=== PATIENT | female | born 1990 | race African-American/Black ===

== ENCOUNTER 2020-02-02 19:24 | Emergency (ER) | payer OTHER ==
--- NOTE | 2020-02-02 19:32 | PDOC ---
Rapid Medical Evaluation Time Seen by Provider: 02/02/20 19:28 Medical Evaluation: 02/02/20 19:28 I have performed a brief in-person evaluation of this patient. The patient presents with a chief complaint of:vag dc w/ itching x 1 week, similar to prior yeast infection per pt. No odor, dysuria, abd pain, n/v/f/c. Wants to be tested for STDs as new sexual partner Pertinent physical exam findings: Well leonardo and stable I have ordered the following:ua/upreg/gc/chlam The patient will proceed to the ED for further evaluation.
--- NOTE | 2020-02-02 19:40 | PDOC ---
History of Present Illness - General Chief Complaint: Vaginal Sxs Stated Complaint: YEAST INFECT/ STD Time Seen by Provider: 02/02/20 19:28 History Source: Patient Exam Limitations: No Limitations Past History - Travel History Traveled outside of the country in the last 30 days: No Close contact w/someone who was outside of country & ill: No - Medical History Allergies/Adverse Reactions: Allergies Allergy/AdvReac Type Severity Reaction Status Date / Time acetaminophen [From Tylenol] Allergy Verified 02/02/20 19:30 latex Allergy Verified 02/02/20 19:31 Home Medications: Ambulatory Orders Fluconazole 150 mg PO ASDIR #2 tablet 02/02/20 Asthma: Yes COPD: No - Psycho-Social/Smoking History Smoking History: Current some day smoker Number of Cigarettes Smoked Daily: 2 Information on smoking cessation initiated: Yes - Substance Abuse Hx (Audit-C & DAST Scrn) How often the patient has a drink containing alcohol: 2-4 times / month Number of drinks the patient has on a typical day: 1 or 2 How often the patient has six or more drinks on one occasion: Never Score: In Men: 4 or > Positive; In Women: 3 or > Positive: 2 Screen Result (Pos requires Nsg. Audit-10AR): Negative In the last yr the pt used illegal drug/Rx for NonMed reason: No Score: Yes response is considered Positive: 0 Screen Result (Positive result requires Nsg. DAST-10): Negative Review of Systems - Review of Systems Able to Perform ROS?: Yes Comments:: 02/02/20 21:23 CONSTITUTIONAL: Absent: fever, chills, diaphoresis, generalized weakness, malaise, loss of appetite HEENT: Absent: rhinorrhea, nasal congestion, throat pain, throat swelling, difficulty swallowing, mouth swelling, ear pain, eye pain, visual Changes GASTROINTESTINAL: Absent: abdominal pain, abdominal distension, nausea, vomiting, diarrhea, constipation, melena, hematochezia GENITOURINARY: Present: Vaginal itching, discharge Absent: dysuria, frequency, urgency, hesitancy, hematuria, flank pain, genital pain MUSCULOSKELETAL: Absent: myalgia, arthralgia, joint swelling SKIN: Absent: rash, itching, pallor NEUROLOGIC: Absent: headache, focal weakness or paresthesias, dizziness, unsteady gait, seizure, mental status changes, bladder or bowel incontinence PSYCHIATRIC: Absent: anxiety, depression, suicidal or homicidal ideation, hallucinations. Is the patient limited [place] proficient: No *Physical Exam - Vital Signs Last Vital Signs Temp Pulse Resp BP Pulse Ox 98.8 F 71 20 98/66 100 02/02/20 19:31 02/02/20 19:31 02/02/20 19:31 02/02/20 19:31 02/02/20 19:31 - Physical Exam 02/02/20 21:24 GENERAL: Well developed, well nourished. Awake and alert. No acute distress. ABDOMINAL: Soft. Non-tender. Non-distended. No rebound or guarding. No organomegaly. Normoactive bowel sounds. MUSCULOSKELETAL Normal range of motion at all joints. No bony deformities or tenderness. No CVA tenderness. EXTREMITIES: No cyanosis. No clubbing. No edema. No calf tenderness. SKIN: Warm and dry. Normal capillary refill. No rashes. No jaundice. NEUROLOGICAL: Alert, awake, appropriate. Cranial nerves 2-12 intact. No deficits to light touch and temperature in face, upper extremities and lower extremities. No motor deficits in the in face, upper extremities and lower extremities. Normoreflexic in the upper and lower extremities. Normal speech. Toes are down-going bilaterally. Gait is normal without ataxia. PSYCHIATRIC: Cooperative. Good eye contact. Appropriate mood and affect. Pelvic: External genitalia normal without lesions. Vaginal vault is with thick white caseous discharge. Cervix is long and closed. No cervical motion tenderness. Uterus is nontender and normal in size. Adnexa are nontender and without masses. Medical Decision Making - Medical Decision Making 02/02/20 21:35 Patient is a 29-year-old female no past medical history who presents to the ER today for vaginal discharge for 1 week as well as STD screening. She states she last had unprotected sex with a new partner 1 month ago. She states that her discharge is thick and white and has presented like her past yeast infections. She also notes very itchy and she feels some burning in her vaginal canal so she was concerned and came to the ER for evaluation. She is requesting STD testing including HIV testing at this time. Denies fevers, chills, abdominal pain, nausea, vomiting, diarrhea and dysuria. A/P: Yeast infection/STD testing. On exam patient has a thick white caseous discharge. No CMT or adnexal tenderness. STD panel sent including HIV. We will send fluconazole to patient's pharmacy to treat the STD. 02/02/20 21:51 HIV testing is negative at this time. We will discharge patient home with [facility] follow-up. Pt treated empirically for STD UA grossly negative Vaginal culture sent. I discussed the physical exam findings, ancillary test results and final diagnoses with the patient. I answered all of the patient's questions. The patient was satisfied with the care received and felt comfortable with the discharge plan and treatment plan. The Patient agrees to follow up with the primary care physician/specialist within 24-72 hours. Return precautions were given. 02/02/20 21:57 Discharge - Discharge Information Problems reviewed: Yes Clinical Impression/Diagnosis: Yeast infection, Screen for STD (sexually transmitted disease) Condition: Stable Disposition: HOME - Admission No - Follow up/Referral Referrals: Luis Mcguire MD [Staff Physician] - - Patient Discharge Instructions Patient Printed Discharge Instructions: DI for Vaginal Yeast Infection Additional Instructions: You were seen for your vaginal discharge today. It is most likely due to a yeast infection. Please take the fluconazole as directed for your symptoms. Avoid douching or sexual intercourse until your symptoms have improved. Your HIV testing was negative today. 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 Cultures were sent for gonorrhea and chlamydia. If they are positive you will receive a phone call. You were treated in the ER today Return to the ER for fever, worsening pain, vomiting or if you have any changes in your symptoms. - Post Discharge Activity
[2020-02-02 19:44] VITALS: BP 98/66; PULSE 71; TEMP 98.8; BMI 22.6
[2020-02-02 20:42] LABS: HCG,QUALITATIVE URINE Negative
[2020-02-02 20:43] LABS: EPI CELLS 26 /uL (0-25.1); HYALINE CASTS 3 /uL (0-3.1); PH,URINE 7.5 (5.0-8.0); URINE APPEARANCE CLEAR; URINE BACTERIA 96 /uL (0-1359); URINE BILIRUBIN NEGATIVE (NEGATIVE); URINE COLOR YELLOW; URINE GLUCOSE (UA) NEGATIVE (NEGATIVE); URINE KETONE TRACE (NEGATIVE); URINE LEUK ESTERASE TRACE (NEGATIVE); URINE NITRITE NEGATIVE (NEGATIVE); URINE PROTEIN NEGATIVE (NEGATIVE); URINE RBC 13 /uL (0-23.9); URINE UROBILINOGEN 0.2 mg/dL (0.2-1.0); URINE WBC 12 /uL (0-25.8)
[2020-02-02] MEDS ORDERED: AZITHROMYCIN 500 MG TABLET PO ONE (21:54)
[2020-02-02] MEDS ORDERED: cefTRIAXone SODIUM 1 GM VIAL ONE (21:57)
[2020-02-02] MEDS ORDERED: AZITHROMYCIN 250 MG TABLET ONE (21:57)
== END 2020-02-02 22:05 | disposition home or self-care (01) ==
LOC: JERFT 19:24
PROC: 3E0234Z Introduction of Serum, Toxoid and Vaccine into Muscle, Percutaneous Approach (ICD-10-PCS; principal; 2020-02-02)
DX: B37.9 Candidiasis, unspecified (principal); Z20.3 Contact with and (suspected) exposure to rabies
CPT/HCPCS: 36415; 81003; 84703; 86780; 87070; 87077; 87086; 87205; 87389; 87491; 87591; 99284-25

== ENCOUNTER 2020-03-03 21:35 | Emergency (ER) | payer OTHER ==
[2020-03-03 21:44] VITALS: BP 121/63; PULSE 79; TEMP 98.5; BMI 22.6
[2020-03-03] MEDS ORDERED: AZITHROMYCIN 250 MG TABLET PO ONE (22:06)
[2020-03-03] MEDS ORDERED: AZITHROMYCIN 500 MG TABLET ONE (22:09)
[2020-03-03 22:33] LABS: URINE APPEARANCE Clear; URINE BILIRUBIN Negative (NEGATIVE); URINE COLOR Yellow; URINE GLUCOSE (UA) Negative (NEGATIVE); URINE KETONE Negative (NEGATIVE); URINE LEUK ESTERASE 3+ (NEGATIVE); URINE NITRITE Negative (NEGATIVE); URINE PROTEIN Negative (NEGATIVE); URINE UROBILINOGEN 0.2 mg/dL (0.2-1.0)
--- NOTE | 2020-03-03 22:38 | PDOC ---
History of Present Illness - General Chief Complaint: Vaginal Sxs Stated Complaint: VAGINAL Time Seen by Provider: 03/03/20 21:44 - History of Present Illness Initial Comments: 03/03/20 22:36 29-year-old female without comorbidities presents for evaluation of vaginal discharge concerns for STD x2 days Past History - Medical History Allergies/Adverse Reactions: Allergies Allergy/AdvReac Type Severity Reaction Status Date / Time acetaminophen [From Tylenol] Allergy Verified 03/03/20 21:42 latex Allergy Verified 03/03/20 21:42 Home Medications: Ambulatory Orders Fluconazole 150 mg PO ASDIR #2 tablet 02/02/20 Asthma: Yes COPD: No - Reproductive History Is Patient Now?: No - Psycho-Social/Smoking History Smoking History: Never smoked Number of Cigarettes Smoked Daily: 2 - Substance Abuse Hx (Audit-C & DAST Scrn) How often the patient has a drink containing alcohol: Never Score: In Men: 4 or > Positive; In Women: 3 or > Positive: 0 Screen Result (Pos requires Nsg. Audit-10AR): Negative In the last yr the pt used illegal drug/Rx for NonMed reason: No Score: Yes response is considered Positive: 0 Screen Result (Positive result requires Nsg. DAST-10): Negative Review of Systems - Review of Systems Constitutional: No: Fever : Yes: Discharge *Physical Exam - Vital Signs Last Vital Signs Temp Pulse Resp BP Pulse Ox 98.5 F 79 18 121/63 99 03/03/20 21:42 03/03/20 21:42 03/03/20 21:42 03/03/20 21:42 03/03/20 21:42 - Physical Exam 03/03/20 22:37 Patient refused pelvic examination saying that she just had 1 and she would just like to be treated for STDs and tested. General Appearance: Yes: Nourished, Appropriately Dressed. No: Apparent Distress HEENT: positive: Symmetrical Neck: positive: Lymphadenopathy (R) Respiratory/Chest: positive: Normal Breath Sounds. negative: Respiratory Distress Musculoskeletal: positive: Normal Inspection Extremity: positive: Normal Inspection Integumentary: positive: Normal Color, Dry Neurologic: positive: sheet rock sander II-XII NML intact, Fully Oriented ED Treatment Course - ADDITIONAL ORDERS Additional order review: Laboratory Results 03/03/20 22:10 Urine Color Yellow Urine Appearance Clear Urine pH 6.0 Ur Specific [place] 1.025 Urine Protein Negative Urine Glucose (UA) Negative Urine Ketones Negative Urine Blood Trace-intact Urine Nitrite Negative Urine Bilirubin Negative Urine Urobilinogen 0.2 Ur Leukocyte Esterase 3+ H - Medications Given in the ED: ED Medications Discontinued Medications Generic Name Dose Route Start Last Admin Trade Name Juanito PRN Reason Stop Dose Admin Azithromycin 1,000 mg 03/03/20 22:06 03/03/20 22:24 Zithromax - PO 03/03/20 22:07 1,000 mg ONCE ONE Administration Ceftriaxone Sodium 250 mg 03/03/20 22:06 03/03/20 22:24 Rocephin - IM 03/03/20 22:07 250 mg ONCE ONE Administration Medical Decision Making - Medical Decision Making 03/03/20 22:37 We will treat for GC and chlamydia. No UTI. Culture sent. RPR and HIV pending. I have reviewed the pathophysiology with the patient. They are in agreement with the treatment plan all questions were answered to their satisfaction. Understanding for follow-up without fail was also conveyed to the patient. Again they are in agreement. Discharge - Discharge Information Problems reviewed: Yes Clinical Impression/Diagnosis: Screen for STD (sexually transmitted disease) Condition: Stable Disposition: HOME - Admission No - Follow up/Referral Referrals: Anu Avila MD [Staff Physician] - - Patient Discharge Instructions Additional Instructions: Return to the emergency room for further issues. You were treated for gonorrhea and chlamydia tonight. Syphilis and HIV tests are pending as well as urine culture. Return to the emergency room sooner if problems develop and without fail follow-up with your [employer]PARER in 1 to 2 days for further evaluation and treatment options. - Post Discharge Activity
[2020-03-03 22:39] LABS: HCG,QUALITATIVE URINE Negative
[2020-03-04 00:34] LABS: EPI CELLS 51.8 /uL (0-25.1); HYALINE CASTS 7.19 /uL (0-3.1); URINE BACTERIA 2025.7 /uL (0-1359); URINE RBC 15.5 /uL (0-23.9); URINE WBC 600.5 /uL (0-25.8)
== END 2020-03-03 22:40 | disposition home or self-care (01) ==
LOC: JERFT 21:35
DX: Z11.3 Encounter for screening for infections with a predominantly sexual mode of transmission (principal)
CPT/HCPCS: 36415; 81003; 84703; 86780; 87077; 87086; 87389; 99284-25